=== PATIENT | male | born 1960 | race Caucasian/White ===

== ENCOUNTER 2016-05-29 09:06 | Inpatient (IN) | payer MEDICAID, OTHER ==
[~2016-05-29] VITALS: Ht 170.2 cm; Wt 86.1 kg
[2016-05-29] MEDS ORDERED: SOD CHLORIDE 0.9% 1,000 ML IV STA (09:48)
[2016-05-29] MEDS ORDERED: IBUPROFEN 600 MG TAB PO ONE (10:00)
--- NOTE | 2016-05-29 10:36 | RADRPT ---
PROCEDURE: CT Brain without. CLINICAL INDICATION: Hallucinations. TECHNIQUE: A CT of the brain was performed on multidetector high-resolution CT scanner utilizing a xial sections from the skull base through the vertex without contrast. The scan was reviewed in sof t tissue brain and high frequency resolution bone algorithm windows. Images were reviewed on a high -resolution PACS workstation. The exam CTDI = 42.80 mGy and the DLP = 720.23 mGy-cm. COMPARISON: None available. FINDINGS: The ventricles and sulci are mildly prominent indicative of volume loss. There is no intracranial h emorrhage, mass effect or midline shift. There is 4 mm nonspecific calcification in the medial left occipital lobe which may represent sequela of prior infection or inflammation. No abnormal intra-a xial or extra-axial fluid collections are seen. The william/white matter differentiation is preserved. There are mild scattered foci of hypoattenuation in the white matter, which are nonspecific in etiol ogy but likely reflect chronic small vessel ischemic changes. There are mild intracranial vascular calcifications consistent with atherosclerosis. The visualized paranasal sinuses demonstrate mild sc attered mucosal thickening. The mastoid air cells are essentially clear. IMPRESSION: 1. No acute intracranial hemorrhage, transcortical infarction or mass effect. 2. Mild intracranial atherosclerosis and chronic small vessel ischemic changes. 3. A 4 mm nonspecific calcification in the medial left occipital lobe which may represent sequela of prior infection or inflammation. 4. Mild generalized cerebral volume loss. RPTAT: UU .Dior Ferreira MD, MD Date Time Electronically viewed and signed by .Dior Ferreira MD, MD on 05/29/2016 10:36 .N/
[2016-05-29 10:59] LABS: BASOPHILS % 0.2 % (0.0-2.0); EOSINOPHILS # 0.1 10^3/ul (0.0-0.5); EOSINOPHILS % 0.8 % (0.0-7.0); HEMATOCRIT 42.8 % (42.0-52.0); HEMOGLOBIN 15.1 g/dl (14.0-18.0); LYMPHOCYTES # 0.6 10^3/ul (0.8-2.9); MEAN CORPUSCULAR HEMOGLOBIN 33.8 pg (29.0-33.0); MEAN CORPUSCULAR HGB CONC 35.2 g/dl (32.0-37.0); MEAN PLATELET VOLUME 8.8 fl (7.4-10.4); MONOCYTE # 0.4 10^3/ul (0.3-0.9); MONOCYTES % 5.2 % (0.0-11.0); NEUTROPHILS % 85.8 % (39.0-77.0); PLATELET COUNT 161 10^3/UL (140-440); RED BLOOD COUNT 4.46 10^6/ul (4.70-6.10); RED CELL DISTRIBUTION WIDTH 12.9 % (11.5-14.5)
[2016-05-29 11:00] LABS: CONDITION 1
[2016-05-29 11:07] LABS: ADD UMIC NO; URINE BILIRUBIN (Dip) NEGATIVE (NEGATIVE); URINE BLOOD (Dip) NEGATIVE (NEGATIVE); URINE COLOR LT. YELLOW (YELLOW); URINE GLUCOSE (Dip) NEGATIVE (NEGATIVE); URINE KETONES (Dip) NEGATIVE (NEGATIVE); URINE LEUKOCYTE ESTERASE (Dip) NEGATIVE (NEGATIVE); URINE NITRITE (Dip) NEGATIVE (NEGATIVE); URINE TOTAL PROTEIN (Dip) NEGATIVE (NEGATIVE); URINE UROBILINOGEN (Dip) 0.2 E.U./dL (0.1-1.0)
[2016-05-29 11:10] LABS: CHLORIDE 103 mmol/L (97-110)
[2016-05-29 11:11] LABS: ALBUMIN 4.4 g/dl (3.3-4.9); POTASSIUM 3.9 mmol/L (3.5-5.1); SODIUM 143 mmol/L (135-144)
[2016-05-29 11:14] LABS: ALANINE AMINOTRANSFERASE 72 IU/L (13-69); ALBUMIN/GLOBULIN RATIO 1.22; ALKALINE PHOSPHATASE 77 IU/L (42-121); ANION GAP 16 (8-16); ASPARTATE AMINO TRANSFERASE 118 IU/L (15-46); BILIRUBIN,INDIRECT 0.4 mg/dl (0-1.1); BILIRUBIN,TOTAL 0.4 mg/dl (0.2-1.3); BLOOD UREA NITROGEN 11 mg/dl (7-20); CALCIUM 9.3 mg/dl (8.4-10.2); CARBON DIOXIDE 28 mmol/L (21-31); CREATININE 0.88 mg/dl (0.61-1.24); GLUCOSE 128 mg/dl (70-220)
[2016-05-29 11:15] LABS: ETHANOL < 10.0 mg/dl; SALICYLATE 4.4 mg/dl (5.0-30.0)
[2016-05-29 11:16] LABS: ACETAMINOPHEN < 10.0 ug/ml (10.0-30.0)
[2016-05-29] MEDS ORDERED: SODIUM CHLORIDE 0.9% 1L BAG IV* STA (11:18)
[2016-05-29] MEDS ORDERED: CEFTRIAXONE 1 GM/50 ML (PMX) 50 ML IVPB STA (11:18)
[2016-05-29] MEDS ORDERED: DICLOFENAC SODIUM 37.5 MG/ML VIAL IV STA (13:58)
[2016-05-29 14:34] LABS: BARBITURATES NEGATIVE (NEGATIVE); BENZODIAZEPINES NEGATIVE (NEGATIVE); CANNABINOIDS NEGATIVE (NEGATIVE); COCAINE NEGATIVE (NEGATIVE); OPIATES NEGATIVE (NEGATIVE)
[2016-05-29] MEDS ORDERED: NAPR-688 PO (14:40)
--- NOTE | 2016-05-29 16:28 | ERD ---
ER Documentation Chief Complaint Date/Time DATE: 05/29/16 TIME: 16:24 Chief Complaint sore throat, hernandez, +visual/auditory hallucinations x"month" per family. HPI This 55-year-old male was brought in the emergency room by and daughter for feeling sick for 6 days. He's had a sore throat mild headache and body aches. Cranial family's having auditory and visual hallucinations for a month. He denies suicidal homicidal ideations the family is worried. She denies fevers but does have a low-grade fever in triage. No chest pain or shortness of breath.. ROS All systems reviewed and are negative except as per history of present illness. Medications Home Meds Active Scripts Naproxen* (Naproxen*) 500 Mg Tablet, 500 MG PO BID, #20 TAB Prov:ABRAHAM HAMILTON DO 05/29/16 Allergies Allergies: Coded Allergies: No Known Allergy (Unverified , 05/29/16) PMhx/Soc Medical and Surgical Hx: pt denies Medical Hx, pt denies Surgical Hx Hx Alcohol Use: Yes Hx Substance Use: No Hx Tobacco Use: No Smoking Status: Never smoker Physical Exam Vitals Vital Signs Date Time Temp Pulse Resp B/P Pulse Ox O2 Delivery O2 Flow Rate FiO2 05/29/16 14:01 86 18 168/100 97 Room Air 05/29/16 09:17 100.5 115 20 197/100 98 Physical Exam Const: [] No distress Head: Atraumatic Eyes: Normal Conjunctiva ENT: Normal External Ears, Nose and Mouth. Oropharynx within normal limits. Neck: Full range of motion..~ No meningismus. Resp: Clear to auscultation bilaterally Cardio: Regular rate and rhythm, no murmurs Abd: Soft, non tender, non distended. Normal bowel sounds Skin: No petechiae or rashes Back: No midline or flank tenderness Ext: No cyanosis, or edema Neur: Awake and alert oriented 3, cranial nerves II through XII intact, cerebellar finger to nose intact, normal gait Psych: Normal Mood and Affect Result Diagram: 05/29/16 1010 05/29/16 1010 Results 24 hrs Laboratory Tests Test 05/29/16 10:10 05/29/16 11:50 Acetaminophen Level < 10.0ug/ml Alanine Aminotransferase (ALT/SGPT) 72IU/L Albumin 4.4g/dl Albumin/Globulin Ratio 1.22 Alkaline Phosphatase 77IU/L Anion Gap 16 Aspartate Amino Transf (AST/SGOT) 118IU/L Basophils # 0.010^3/ul Basophils % 0.2% Blood Urea Nitrogen 11mg/dl Calcium Level 9.3mg/dl Carbon Dioxide Level 28mmol/L Chloride Level 103mmol/L Creatinine 0.88mg/dl Direct Bilirubin 0.00mg/dl Eosinophils # 0.110^3/ul Eosinophils % 0.8% Ethyl Alcohol Level < 10.0mg/dl Globulin 3.60g/dl Glucose Level 128mg/dl Hematocrit 42.8% Hemoglobin 15.1g/dl Indirect Bilirubin 0.4mg/dl Lymphocytes # 0.610^3/ul Lymphocytes % 8.0% Mean Corpuscular Hemoglobin 33.8pg Mean Corpuscular Hemoglobin Concent 35.2g/dl Mean Corpuscular Volume 96.0fl Mean Platelet Volume 8.8fl Monocytes # 0.410^3/ul Monocytes % 5.2% Neutrophils # 6.010^3/ul Neutrophils % 85.8% Nucleated Red Blood Cells # 0.010^3/ul Nucleated Red Blood Cells % 0.0/100WBC Platelet Count 52953^3/UL Potassium Level 3.9mmol/L Red Blood Count 4.4610^6/ul Red Cell Distribution Width 12.9% Salicylates Level 4.4mg/dl Sodium Level 143mmol/L Total Bilirubin 0.4mg/dl Total Protein 8.0g/dl Urine Amphetamines Screen NEGATIVE Urine Barbiturates NEGATIVE Urine Benzodiazepines Screen NEGATIVE Urine Bilirubin NEGATIVE Urine Cannabinoids NEGATIVE Urine Clarity CLEAR Urine Cocaine Screen NEGATIVE Urine Color LT. YELLOW Urine Glucose NEGATIVE% Urine Hemoglobin NEGATIVE Urine Ketones NEGATIVE Urine Leukocyte Esterase NEGATIVE Urine Nitrite NEGATIVE Urine Opiates Screen NEGATIVE Urine Specific [place] 1.015 Urine Total Protein NEGATIVE Urine Urobilinogen 0.2 E.U./dL Urine pH 6.0 White Blood Count 7.010^3/ul Lactic Acid Level 1.1mmol/L Current Medications Medications (Trade) Dose Ordered Sig/Cristobal Route PRN Reason Start Time Stop Time Status Last Admin Dose Admin Ibuprofen 600 mg 600 mg ONCE ONCE PO 05/29/16 10:00 05/29/16 10:01 DC 05/29/16 10:18 Sodium Chloride (NS) 1,000 ml @ 1,000 mls/hr Q1H STAT IV 05/29/16 09:48 05/29/16 10:47 DC 05/29/16 10:18 Sodium Chloride 2540 ml 2,540 ml BOLUS OVER 2 HOURS STAT IV* 05/29/16 11:18 05/29/16 11:22 DC 05/29/16 12:06 Ceftriaxone Sodium (Rocephin) 50 ml @ 100 mls/hr ONCE STAT IVPB 05/29/16 11:18 05/29/16 11:47 DC 05/29/16 12:06 Diclofenac Sodium (Dyloject) 37.5 mg ONCE STAT IV 05/29/16 13:58 05/29/16 13:59 DC 05/29/16 13:58 Procedures/MDM Patient with apparent viral syndrome also having unexplained hallucinations. This Nations of better on for much longer than his infectious symptoms. He has normal laboratories and have low suspicion for meningitis as he has a negative white count without meningismus. Kernig and Brudzinski sign are also negative. His normal neurological exam is alert and oriented and a good historian currently. Social work spoke with him and give him resources for psychiatric follow-up but does not recommend admission as the patient has no thoughts of harming himself or others. Was given Dilaudid checked a small dose of morphine emergency room which decreased his symptoms may feel better. He is awaiting tele -psych admission pending their decision he may be discharged which case I provided follow-up as well as return precautions to emergency room for any more concerning symptoms. Departure Diagnosis: Primary Impression: Hallucinations Additional Impression: Viral syndrome Condition: Stable Patient Instructions: Psychosis, Viral Syndrome (Adult) Referrals: [facility] YOU HAVE RECEIVED A MEDICAL SCREENING EXAM AND THE RESULTS INDICATE THAT YOU DO NOT HAVE A CONDITION THAT REQUIRES URGENT TREATMENT IN THE EMERGENCY DEPARTMENT. FURTHER EVALUATION AND TREATMENT OF YOUR CONDITION CAN WAIT UNTIL YOU ARE SEEN IN YOUR DOCTORS OFFICE WITHIN THE NEXT 1-2 DAYS. IT IS YOUR RESPONSIBILITY TO MAKE AN APPOINTMENT FOR FOLOW-UP CARE. IF YOU HAVE A PRIMARY DOCTOR --you should call your primary doctor and schedule an appointment IF YOU DO NOT HAVE A PRIMARY DOCTOR YOU CAN CALL OUR PHYSICIAN REFERRAL HOTLINE AT IF YOU CAN NOT AFFORD TO SEE A PHYSICIAN YOU CAN CHOSE FROM THE FOLLOWING [facility] [address] [facility] [address] [facility] [address] [facility] [address] [facility] [address] [facility]. [facility] [address] [facility]. [facility] YOU HAVE RECEIVED A MEDICAL SCREENING EXAM AND THE RESULTS INDICATE THAT YOU DO NOT HAVE A CONDITION THAT REQUIRES URGENT TREATMENT IN THE EMERGENCY DEPARTMENT. FURTHER EVALUATION AND TREATMENT OF YOUR CONDITION CAN WAIT UNTIL YOU ARE SEEN IN YOUR DOCTORS OFFICE WITHIN THE NEXT 1-2 DAYS. IT IS YOUR RESPONSIBILITY TO MAKE AN APPOINTMENT FOR FOLOW-UP CARE. IF YOU HAVE A PRIMARY DOCTOR --you should call your primary doctor and schedule and appointment IF YOU DO NOT HAVE A PRIMARY DOCTOR YOU CAN CALL OUR PHYSICIAN REFERRAL HOTLINE AT . IF YOU CAN NOT AFFORD TO SEE A PHYSICIAN YOU CAN CHOSE FROM THE FOLLOWING [facility] INSTITUTIONS: [facility] [address] [place] [address] [facility] [address] [place] [address] [facility] [address] [place] [address] Additional Instructions: Llame al doctor MAANA y latisha cassi KEITH PARA DENTRO DE 1-2 FINE.Dgale a la secretaria que nosotros le instruimos hacer esta keith.Avise o llame si larsen condicin se empeora antes de la keith. Regresa aqui si peor o no mejor. ABRAHAM HAMILTON DO May 29, 2016 16:28
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
[2016-05-29] MEDS: OLANZAPINE 5 MG TAB PO SCH (21:56)
[2016-05-29] MEDS ORDERED: ACETAMINOPHEN 325 MG TAB PO ONE (22:30)
[2016-05-30] MEDS ORDERED: ACETAMINOPHEN 325 MG TAB PO ONE (13:00)
--- NOTE | 2016-05-30 22:23 | RADRPT ---
PROCEDURE: XR Chest. CLINICAL INDICATION: Cough and fever. TECHNIQUE: Single frontal view. COMPARISON: None. FINDINGS: The lungs are clear. The heart size is normal. There is no pleural effusion. There is no pneumothorax. IMPRESSION: 1. Normal chest radiograph. RPTAT: QQ .Nj Del Toro MD, Date Time Electronically viewed and signed by .Nj Del Toro MD, on 05/30/2016 22:22 .R/
[2016-05-30] MEDS: OLANZAPINE 5 MG TAB PO SCH (22:28)
[2016-05-30] MEDS ORDERED: IBUPROFEN 800 MG TAB PO ONE (22:30)
[2016-05-30] MEDS ORDERED: ONDANSETRON 4 MG INJ IV PRN (23:30)
[2016-05-30] MEDS ORDERED: ACETAMINOPHEN 325 MG TAB PO PRN (23:30)
[2016-05-31] MEDS ORDERED: ONDANSETRON 4 MG INJ IV PRN (02:00)
[2016-05-31] MEDS ORDERED: LEVOFLOXACIN 500MG/D5W (PMX) 100 ML IVPB SCH (02:00)
[2016-05-31 02:09] VITALS: TEMP 97.9
[2016-05-31 03:06] VITALS: Ht 170.2 cm; Wt 86.1 kg
[2016-05-31 03:19] VITALS: BP 114/78; PULSE 75; RESP 16
--- NOTE | 2016-05-31 03:29 | HP ---
DATE OF ADMISSION: 05/30/2016 PRESENTING COMPLAINT: The patient was brought to the emergency room by and daughter for flu-li ke symptoms over the last 6 days. However, he came in with complaints of a sore throat, mild headac he and body aches. However, he was found to be having auditory and visual hallucinations that ____ on for a month. The patient, however, denies suicidal, homicidal ideations, but the family was worr ied, and so a telepsychiatric consultation was done by the emergency room, and he was seen by Dr. Cristina montes. ____ history patient has not been sleeping for 6 weeks, not eating and was hearing voices telli ng him they were going kill him and telling him to hurt others. The patient was then assessed to [facility] inpatient psychiatric admission and started on oral Zyprexa. However, he continued to have pe rsistent high-grade fever in the emergency room, and so he is being admitted to take care of his med [facility] issues before transfer to inpatient psychiatric unit. PAST MEDICAL HISTORY: The patient has history of psychiatric disorder, name unknown but has run out of medications a long time ago. SURGICAL HISTORY: The patient denies. ALLERGIES: HE HAS NO KNOWN DRUG ALLERGIES. SOCIAL HISTORY: The patient's family endorses heavy alcohol use, but they say he does not smoke tob acco or use illicit drugs. FAMILY HISTORY: No history of premature coronary artery disease. REVIEW OF SYSTEMS: I did a 12-point review of systems. There is no chest pain. There are generali zed body aches though. There is no dysuria, hematuria. There is no blood in stool or urine. There is no extremity swelling. There is no joint swelling or deformity. All other systems were reviewe d and negative. PHYSICAL EXAMINATION VITAL SIGNS: At time of my review, his temperature was 101.9, pulse was 96, respirations 20, blood pressure 141/92, saturations 97% on room air. GENERAL: The patient was sleeping comfortably but alert and oriented. HEENT: Head normocephalic. Pupils equal, reactive. Mucous membranes dry. NECK: Nontender. CHEST: Clear to auscultation. CARDIOVASCULAR: Tachycardic without murmurs. ABDOMEN: Soft, nontender, nondistended. Normoactive bowel sounds. EXTREMITIES: No lower extremity edema. NEUROLOGIC: He had no focal deficits. SKIN: Devoid of rash or jaundice. LABORATORY: Emergency room lab values, but these are dated from 05/29/____, were consistent with a mild hyperchromia and a neutrophilia but normal white count, normal hemoglobin and hematocrit. A co mplete metabolic profile was completely normal except for elevation in his transaminases consistent with alcoholic liver disease with AST being almost twice ALT. Lactic acid was normal. The rest of his CMP was unremarkable. Urinalysis and urine tox screen were negative, and salicylate, acetaminop hen and alcohol levels were within normal range. IMAGING: Brain CT showed no acute intracranial hemorrhage, mild intracranial atherosclerosis, chron ic small-vessel ischemic changes and a 4 mm nonspecific calcification in the medial left occipital l obe that may be sequelae of prior infection or inflammation. Chest x-ray was read by Radiology as normal. ELECTROCARDIOGRAM: His electrocardiogram was not concerning for acute ischemia. ASSESSMENT: A 55-year-old male who is brought in by family for visual and auditory hallucinations a nd flu-like symptoms, managed as follows. 1. Febrile illness thought to be secondary to a viral respiratory infection. However, this is pers istent. Will have to admit him, begin empiric antibiotics and work him to up to rule out a bacteria l cause. In the interim, provide supportive care with antipyretics, antiemetics and a stool softene r if indicated. 2. Paranoid and delusions with visual and auditory hallucinations suggestive of schizophrenia. Rec ommended regimen is Zyprexa 10 mg per Psychiatry. Will continue this while in-house. 3. Acute transaminitis, likely secondary to alcoholic liver injury with a mild hyperchromasia. The patient has been counseled on the need to completely quit alcohol use to prevent further liver marina ge. Will continue to intervene while in-house. In the interim, will put him on banana bag and clos berenice watch for delirium tremens. 4. Disposition is for inpatient admission until more stable. Goal will be at least 24 hours fever free, after which he might be able to be transferred to inpatient psychiatric care. 5. Prophylaxis will be with Pepcid and SCDs. Dictated By: XIOMY SIDHU MD, BA/MARLA Conf#: [id number] DID#: [id number]
[2016-05-31 05:42] LABS: INR 1.15; PROTIME 14.7 Sec (12.2-14.2); PT RATIO 1.1
[2016-05-31 05:51] LABS: CHLORIDE 105 mmol/L (97-110); SODIUM 143 mmol/L (135-144)
[2016-05-31 05:53] LABS: ANION GAP 20 (8-16); ASPARTATE AMINO TRANSFERASE 135 IU/L (15-46); BILIRUBIN,INDIRECT 0.2 mg/dl (0-1.1); BILIRUBIN,TOTAL 0.2 mg/dl (0.2-1.3); CARBON DIOXIDE 22 mmol/L (21-31); CREATININE 1.03 mg/dl (0.61-1.24)
[2016-05-31 05:54] LABS: ALANINE AMINOTRANSFERASE 82 IU/L (13-69); ALKALINE PHOSPHATASE 63 IU/L (42-121); BLOOD UREA NITROGEN 14 mg/dl (7-20); CALCIUM 8.8 mg/dl (8.4-10.2); GLUCOSE 132 mg/dl (70-220); TOTAL PROTEIN 7.6 g/dl (6.1-8.1)
[2016-05-31 06:36] LABS: BASOPHILS % 0.9 % (0.0-2.0); EOSINOPHILS # 0.1 10^3/ul (0.0-0.5); EOSINOPHILS % 3.5 % (0.0-7.0); HEMOGLOBIN 15.2 g/dl (14.0-18.0); LYMPHOCYTES # 1.1 10^3/ul (0.8-2.9); LYMPHOCYTES % 30.7 % (15.0-51.0); MEAN CORPUSCULAR HEMOGLOBIN 33.4 pg (29.0-33.0); MEAN CORPUSCULAR HGB CONC 34.6 g/dl (32.0-37.0); MEAN CORPUSCULAR VOLUME 96.3 fl (82.0-101.0); MEAN PLATELET VOLUME 8.6 fl (7.4-10.4); MONOCYTE # 0.4 10^3/ul (0.3-0.9); MONOCYTES % 11.6 % (0.0-11.0); NEUTROPHIL # 1.9 10^3/ul (1.6-7.5); NEUTROPHILS % 53.3 % (39.0-77.0); PLATELET COUNT 135 10^3/UL (140-440); RED BLOOD COUNT 4.56 10^6/ul (4.70-6.10); RED CELL DISTRIBUTION WIDTH 13.1 % (11.5-14.5); UNCORRECTED WBC 3.6 10^3/ul (4.8-10.8); WHITE BLOOD COUNT 3.6 10^3/ul (4.8-10.8)
[2016-05-31 06:56] LABS: CONDITION 1
[2016-05-31 08:00] VITALS: BP 119/83; PULSE 81; RESP 18
[2016-05-31] MEDS: FAMOTIDINE 20 MG TAB PO SCH ×2 (08:56→20:55)
[2016-05-31] MEDS: DOCUSATE SODIUM 100 MG CAP PO SCH ×2 (08:56→20:55)
[2016-05-31] MEDS: MULTIVITAMINS 10 ML, THIAMINE 100 MG, FOLIC ACID 1 MG, MAGNESIUM SULFATE 2 GM in SOD CH... IV SCH (09:47)
--- NOTE | 2016-05-31 11:31 | RADRPT ---
PROCEDURE: Right Upper Quadrant Ultrasound. CLINICAL INDICATION: transaminitis,NPO TECHNIQUE: Multiple real-time images were acquired of the patient's right upper quadrant abdomen a nd retroperitoneum utilizing a high resolution transducer. COMPARISON: None FINDINGS: The liver measures 17.2 cm, and demonstrates diffusely increased echogenicity. No focal lesions are identified. The main portal vein is patent with proper directional flow. There is no intrahepatic biliary ductal dilatation. The extrahepatic common bile duct measures 5 mm. The gallbladder is without stones, wall thickening, or pericholecystic fluid. The pancreas is not visualized. The right kidney measures 11.6 cm and demonstrates normal echotexture. There is no right renal calcu cole or hydronephrosis. IMPRESSION: Hepatomegaly with severe fatty infiltration of the liver. No cholelithiasis or acute cholecystitis. Normal CBD. RPTAT: EE Physician Ligia Date Time Electronically viewed and signed by Physician Ligia on 05/31/2016 11:30 RA/
--- NOTE | 2016-05-31 15:21 | PN ---
Date/Time of Note Date/Time of Note DATE: 05/31/16 TIME: 15:16 Assessment/Plan VTE Prophylaxis VTE Prophylaxis Intervention: LMWH Lines/Catheters IV [facility] Saline Lock Urinary Cath still in place: No Assessment/Plan Chief Complaint/Hosp Course A/P 1) Ac influenza/bronchitis; stable; cont tamiflu 2) Chr alcoholism; AA needed 3) Etoh liver dz 4) Thrombocytopenia ~ chr liver dz assoc? 5) Leukopenia ~ influenza related. 6) Nonadherence 7) Ac on Chr schizophrenia exacerbation; zyprexa/ cont 5151 hold. Problems: Subjective 24 Hr Interval Summary Free Text/Dictation S- cough-yellow expectoration; no hemoptysis/ ill contacts. +sore throat. no recent travel/ ill contacts. non smoker. ran out of [place], and has been having hallucinations. continues to be on hold. Exam/Review of Systems Vital Signs Vitals Vital Signs Date Time Temp Pulse Resp B/P Pulse Ox O2 Delivery O2 Flow Rate FiO2 05/31/16 08:00 97.1 81 18 119/83 98 Room Air Exam Constitutional: alert Respiratory: clear to auscultation Cardiovascular: regular rate and rhythm Gastrointestinal: non-tender (nd; no r r g), soft Extremities: other (no edema) Results Result Diagram: 05/31/1651205/31/16512 Results 24 hrs Laboratory Tests Test 05/31/16 05:13 Activated Partial Thromboplast Time 35.0 Alanine Aminotransferase (ALT/SGPT) 82 H Albumin 4.0 Alkaline Phosphatase 63 Anion Gap 20 H Aspartate Amino Transf (AST/SGOT) 135 H Basophils # 0.0 Basophils % 0.9 Blood Urea Nitrogen 14 Calcium Level 8.8 Carbon Dioxide Level 22 Chloride Level 105 Creatinine 1.03 Direct Bilirubin 0.00 Eosinophils # 0.1 Eosinophils % 3.5 Glucose Level 132 Hematocrit 44.0 Hemoglobin 15.2 Hepatitis B Surface Antibody NEGATIVE Hepatitis B Surface Antigen NEGATIVE Hepatitis C Antibody NEGATIVE INR International Normalized Ratio 1.15 Indirect Bilirubin 0.2 Lymphocytes # 1.1 Lymphocytes % 30.7 Magnesium Level 2.0 Mean Corpuscular Hemoglobin 33.4 H Mean Corpuscular Hemoglobin Concent 34.6 Mean Corpuscular Volume 96.3 Mean Platelet Volume 8.6 Monocytes # 0.4 Monocytes % 11.6 H Neutrophils # 1.9 Neutrophils % 53.3 Nucleated Red Blood Cells # 0.0 Nucleated Red Blood Cells % 0.0 Platelet Count 135 L Potassium Level 4.0 Prothrombin Time 14.7 H Prothrombin Time Ratio 1.1 Red Blood Count 4.56 L Red Cell Distribution Width 13.1 Sodium Level 143 Thyroid Stimulating Hormone (TSH) 1.860 Total Bilirubin 0.2 Total Protein 7.6 White Blood Count 3.6 #L Medications Medications Current Medications Olanzapine (Zyprexa) 10 mg QHS PO Last administered on 05/30/16at 22:28; Admin Dose 10 MG; Start 05/29/16 at 21:00 Acetaminophen 650 mg 650 mg Q6H PRN PO PAIN AND OR ELEVATED TEMP; Start at 02:00 Multivitamins/ Thiamine HCl/ Folic Acid/ Magnesium Sulfate/ Sodium Chloride (Mvi -12 Adult/ Vitamin B1/Folic Acid/Magnesium Sulfate/NS) 1,015.2 ml @ 125 mls/ hr DAILY@09 IV Last administered on 05/31/16 09:47; Admin Dose 125 MLS/HR; Start 05/31/16 at 09:00 Ondansetron HCl (Zofran Inj) 4 mg Q6H PRN IV NAUSEA AND/OR VOMITING; Start at 02:00 Famotidine (Pepcid) 20 mg BID PO Last administered on 05/31/16at 08:56; Admin Dose 20 MG; Start 05/31/16 at 09:00 Docusate Sodium 100 mg 100 mg BID PO Last administered on 05/31/16 08:56; Admin Dose 100 MG; Start 05/31/16 at 09:00 Levofloxacin/ Dextrose (Levaquin 500mg/ D5W 100 ml (Pmx)) 100 ml @ 100 mls/hr Q24H IVPB Last administered on 05/31/16 04:00; Admin Dose 100 MLS/HR; Start 05/31/16 at 02:00 ARABELLA MEHTA MD May 31, 2016 15:21
[2016-05-31] MEDS ORDERED: GUAIFENESIN/CODEINE 5ML CUP PO PRN (15:30)
[2016-05-31] MEDS ORDERED: ALBUTEROL HFA 8 GM INHALER INH PRN (15:30)
[2016-05-31] MEDS ORDERED: PHENOL 1.4% SOLN 180 ML BTL MT PRN (16:00)
[2016-05-31] MEDS: THIAMINE 100 MG TAB PO SCH (16:27)
[2016-05-31] MEDS: OSELTAMIVIR 75 MG CAP PO SCH ×2 (16:27→20:55)
[2016-05-31] MEDS: AZITHROMYCIN 250 MG TAB PO SCH (16:27)
[2016-05-31] MEDS: ENOXAPARIN 40 MG/0.4 ML SYG SC SCH (16:29)
[2016-05-31] MEDS: SOD CHLORIDE 0.9% 1,000 ML IV SCH ×2 (17:56→23:30)
[2016-05-31 19:57] VITALS: BP 155/96; PULSE 91; RESP 18
[2016-05-31] MEDS: OLANZAPINE 5 MG TAB PO SCH (20:55)
[2016-06-01] MEDS: SOD CHLORIDE 0.9% 1,000 ML IV SCH ×4 (02:07→19:23)
[2016-06-01 06:37] LABS: INR 1.04; PROTIME 13.6 Sec (12.2-14.2); PT RATIO 1.1
[2016-06-01 06:49] LABS: BASOPHILS % 0.8 % (0.0-2.0); EOSINOPHILS # 0.1 10^3/ul (0.0-0.5); EOSINOPHILS % 3.3 % (0.0-7.0); HEMATOCRIT 42.6 % (42.0-52.0); HEMOGLOBIN 14.9 g/dl (14.0-18.0); LYMPHOCYTES # 1.9 10^3/ul (0.8-2.9); LYMPHOCYTES % 49.9 % (15.0-51.0); MEAN CORPUSCULAR HEMOGLOBIN 33.8 pg (29.0-33.0); MEAN CORPUSCULAR VOLUME 96.7 fl (82.0-101.0); MEAN PLATELET VOLUME 8.2 fl (7.4-10.4); MONOCYTE # 0.4 10^3/ul (0.3-0.9); MONOCYTES % 10.8 % (0.0-11.0); NEUTROPHIL # 1.3 10^3/ul (1.6-7.5); NEUTROPHILS % 35.2 % (39.0-77.0); PLATELET COUNT 146 10^3/UL (140-440); RED CELL DISTRIBUTION WIDTH 12.9 % (11.5-14.5); UNCORRECTED WBC 3.7 10^3/ul (4.8-10.8); WHITE BLOOD COUNT 3.7 10^3/ul (4.8-10.8)
[2016-06-01 06:56] LABS: POTASSIUM 4.2 mmol/L (3.5-5.1)
[2016-06-01 06:59] LABS: CREATININE 0.96 mg/dl (0.61-1.24)
[2016-06-01 07:00] LABS: CALCIUM 8.7 mg/dl (8.4-10.2)
[2016-06-01 07:02] LABS: CONDITION 1
[2016-06-01 07:09] LABS: PHOSPHORUS 3.6 mg/dl (2.5-4.9)
[2016-06-01 07:10] LABS: MAGNESIUM 1.9 mg/dl (1.7-2.5)
[2016-06-01 08:00] VITALS: BP 158/98; PULSE 75; RESP 20
[2016-06-01] MEDS: FAMOTIDINE 20 MG TAB PO SCH ×2 (08:57→20:46)
[2016-06-01] MEDS: THIAMINE 100 MG TAB PO SCH (08:57)
[2016-06-01] MEDS: OSELTAMIVIR 75 MG CAP PO SCH ×2 (08:57→20:46)
[2016-06-01] MEDS: AZITHROMYCIN 250 MG TAB PO SCH (08:57)
[2016-06-01] MEDS: MULTIVITAMINS 10 ML, THIAMINE 100 MG, FOLIC ACID 1 MG, MAGNESIUM SULFATE 2 GM in SOD CH... IV SCH (08:57)
[2016-06-01] MEDS: DOCUSATE SODIUM 100 MG CAP PO SCH ×2 (08:57→20:45)
[2016-06-01 09:47] LABS: THYROID STIMULATING HORMONE 4.06 MIU/L (0.465-4.680)
[2016-06-01] MEDS: ENOXAPARIN 40 MG/0.4 ML SYG SC SCH (10:31)
--- NOTE | 2016-06-01 14:15 | PN ---
Date/Time of Note Date/Time of Note DATE: 06/01/16 TIME: 14:13 Assessment/Plan VTE Prophylaxis VTE Prophylaxis Intervention: ambulation Lines/Catheters IV Catheter Type (from Nrs): Peripheral IV Urinary Cath still in place: No Assessment/Plan Chief Complaint/Hosp Course A/P 1) Ac influenza/bronchitis; stable; cont tamiflu. if no fever 06/02, will dc to psychiatry care, if able to get po meds. 2) Chr alcoholism; AA needed/ b1 3) Etoh liver dz 4) Thrombocytopenia ~ chr liver dz assoc? 5) Leukopenia ~ influenza related. 6) Nonadherence 7) Back pain; muscular spasm likely. 8) Ac on Chr schizophrenia exacerbation; zyprexa/ cont 5151 hold. Problems: Subjective 24 Hr Interval Summary Free Text/Dictation S- less cough/dyspnea; some sore throat remains. lt flank/back non radiating pain. no dysuria/ hematuria. Exam/Review of Systems Vital Signs Vitals Vital Signs Date Time Temp Pulse Resp B/P Pulse Ox O2 Delivery O2 Flow Rate FiO2 06/01/16 08:00 98.8 75 20 158/98 97 Room Air Intake and Output 05/31/16 05/31/16 06/01/16 14:59 22:59 06:59 Intake Total 1015.2 ml 1480 ml Balance 1015.2 ml 1480 ml Exam Respiratory: diminished breath sounds Cardiovascular: regular rate and rhythm Gastrointestinal: non-tender, soft Extremities: other (no edema) Results Result Diagram: 06/01/16 0530 06/01/16 0520 Results 24 hrs Laboratory Tests Test 06/01/16 04:29 06/01/16 05:20 06/01/16 05:30 Hemoglobin A1c 6.6 H Anion Gap 19 H Blood Urea Nitrogen 11 Calcium Level 8.7 Carbon Dioxide Level 21 Chloride Level 109 Creatinine 0.96 Glucose Level 108 Potassium Level 4.2 Sodium Level 145 H Basophils # 0.0 Basophils % 0.8 Eosinophils # 0.1 Eosinophils % 3.3 Hematocrit 42.6 Hemoglobin 14.9 INR International Normalized Ratio 1.04 Lymphocytes # 1.9 Lymphocytes % 49.9 Magnesium Level 1.9 Mean Corpuscular Hemoglobin 33.8 H Mean Corpuscular Hemoglobin Concent 35.0 Mean Corpuscular Volume 96.7 Mean Platelet Volume 8.2 Monocytes # 0.4 Monocytes % 10.8 Neutrophils # 1.3 L Neutrophils % 35.2 L Nucleated Red Blood Cells # 0.0 Nucleated Red Blood Cells % 0.0 Phosphorus Level 3.6 Platelet Count 146 Prothrombin Time 13.6 Prothrombin Time Ratio 1.1 Red Blood Count 4.40 L Red Cell Distribution Width 12.9 Thyroid Stimulating Hormone (TSH) 4.060 White Blood Count 3.7 L Medications Medications Current Medications Olanzapine (Zyprexa) 10 mg QHS PO Last administered on 05/31/16at 20:55; Admin Dose 10 MG; Start 05/29/16 at 21:00 Acetaminophen 650 mg 650 mg Q6H PRN PO PAIN AND OR ELEVATED TEMP; Start at 02:00 Multivitamins/ Thiamine HCl/ Folic Acid/ Magnesium Sulfate/ Sodium Chloride (Mvi -12 Adult/ Vitamin B1/Folic Acid/Magnesium Sulfate/NS) 1,015.2 ml @ 125 mls/ hr DAILY@09 IV Last administered on 06/01/16 08:57; Admin Dose 125 MLS/HR; Start 05/31/16 at 09:00 Ondansetron HCl (Zofran Inj) 4 mg Q6H PRN IV NAUSEA AND/OR VOMITING; Start at 02:00 Famotidine (Pepcid) 20 mg BID PO Last administered on 06/01/16 08:57; Admin Dose 20 MG; Start 05/31/16 at 09:00 Docusate Sodium (Colace) 100 mg BID PO Last administered on 06/01/16 08:57; Admin Dose 100 MG; Start 05/31/16 at 09:00 Azithromycin (Zithromax) 250 mg DAILY PO Last administered on 06/01/16 08:57 ; Admin Dose 250 MG; Start 05/31/16 at 16:00 Oseltamivir Phosphate (Tamiflu) 75 mg BID PO Last administered on 06/01/16 08 :57; Admin Dose 75 MG; Start 05/31/16 at 16:00 Enoxaparin Sodium (Lovenox) 40 mg DAILY SC Last administered on 06/01/16 10: 31; Admin Dose 40 MG; Start 05/31/16 at 16:00 Thiamine HCl 100 mg 100 mg DAILY PO Last administered on 06/01/16 08:57; Admin Dose 100 MG; Start 05/31/16 at 16:00 Sodium Chloride (NS) 1,000 ml @ 125 mls/hr Q8H IV Last administered on at 02:07; Admin Dose 125 MLS/HR; Start 05/31/16 at 15:30 Phenol (Chloraseptic Throat [place]) 2 spray Q2H PRN MT SORE THROAT; Start 05/31 at 16:00 Guaifenesin/ Codeine Phosphate (Robitussin Ac Liquid Cup) 10 ml Q4H PRN PO COUGH; Start 05/31/16 at 15:30 ARABELLA MEHTA MD Jun 01, 2016 14:15
--- NOTE | 2016-06-01 15:20 | RADRPT ---
PROCEDURE: XR Lumbar Spine. CLINICAL INDICATION: Flank and back pain. TECHNIQUE: 3 views of the lumbar spine are available for review COMPARISON: None available FINDINGS: The 5 lumbar vertebral bodies appear normally aligned and the vertebral body heights are maintained. There are osteophytes along the endplates. There is degenerative disk disease at L5-S1. There is mild facet arthropathy present. An acute fracture or subluxation is not identified. The paravertebr al soft tissues appear unremarkable. IMPRESSION: 1. Diffuse lumbar vertebral spondylosis. 2. No acute fracture or subluxation identified. RPTAT: [facility] Physician Otoniel Date Time Electronically viewed and signed by Reuben Moreno Physician on 06/01/2016 15:19 /
[2016-06-01 20:43] VITALS: BP 143/95; PULSE 84; RESP 18
[2016-06-01] MEDS: OLANZAPINE 5 MG TAB PO SCH (20:46)
[2016-06-02 06:22] LABS: BASOPHILS % 0.5 % (0.0-2.0); EOSINOPHILS # 0.2 10^3/ul (0.0-0.5); EOSINOPHILS % 3.9 % (0.0-7.0); HEMATOCRIT 41.1 % (42.0-52.0); HEMOGLOBIN 14.2 g/dl (14.0-18.0); LYMPHOCYTES # 1.7 10^3/ul (0.8-2.9); LYMPHOCYTES % 37.5 % (15.0-51.0); MEAN CORPUSCULAR HEMOGLOBIN 33.4 pg (29.0-33.0); MEAN CORPUSCULAR HGB CONC 34.6 g/dl (32.0-37.0); MEAN CORPUSCULAR VOLUME 96.7 fl (82.0-101.0); MONOCYTE # 0.5 10^3/ul (0.3-0.9); MONOCYTES % 10.8 % (0.0-11.0); NEUTROPHIL # 2.2 10^3/ul (1.6-7.5); NEUTROPHILS % 47.3 % (39.0-77.0); PLATELET COUNT 151 10^3/UL (140-440); RED BLOOD COUNT 4.25 10^6/ul (4.70-6.10); RED CELL DISTRIBUTION WIDTH 13.2 % (11.5-14.5); UNCORRECTED WBC 4.6 10^3/ul (4.8-10.8); WHITE BLOOD COUNT 4.6 10^3/ul (4.8-10.8)
[2016-06-02 06:24] LABS: CONDITION 1
[2016-06-02 06:39] LABS: POTASSIUM 4.7 mmol/L (3.5-5.1)
[2016-06-02 06:42] LABS: CREATININE 0.94 mg/dl (0.61-1.24)
[2016-06-02 06:43] LABS: CALCIUM 8.7 mg/dl (8.4-10.2)
[2016-06-02 08:00] VITALS: BP 161/97; PULSE 77; RESP 16
[2016-06-02] MEDS: FAMOTIDINE 20 MG TAB PO SCH ×2 (09:18→20:13)
[2016-06-02] MEDS: OSELTAMIVIR 75 MG CAP PO SCH ×2 (09:18→20:13)
[2016-06-02] MEDS: THIAMINE 100 MG TAB PO SCH (09:18)
--- NOTE | 2016-06-02 09:18 | RADRPT ---
PROCEDURE: CR, chest CLINICAL INDICATION: Cough. TECHNIQUE: AP chest. COMPARISON: Chest, 05/30/2016. FINDINGS: The heart is not enlarged. There is no acute infiltrate in the lungs. No pleural effusion. There is degenerate spondylosis of the thoracic spine. IMPRESSION: 1. Unremarkable chest x-ray. RPTAT: GG .Jerson Carvajal MD, MD Date Time Electronically viewed and signed by .Jerson Carvajal MD, MD on 06/02/2016 09:18 .Y/
[2016-06-02] MEDS: DOCUSATE SODIUM 100 MG CAP PO SCH ×2 (09:19→20:13)
[2016-06-02] MEDS: AZITHROMYCIN 250 MG TAB PO SCH (09:19)
[2016-06-02] MEDS: ENOXAPARIN 40 MG/0.4 ML SYG SC SCH (09:24)
--- NOTE | 2016-06-02 12:42 | PDOCDIS ---
Discharge Instructions DIAGNOSIS Discharge Diagnosis: Influenza; schizophrenia CONDITION Patient Condition: Good HOME CARE INSTRUCTIONS: Diet Instructions: Regular ACTIVITY: Activity Restrictions: No Restrictions Do not Drive FOLLOW UP/APPOINTMENTS Appointments Admit to Inpatient Psy. PCP- 1wk post discharge. ARABELLA MEHTA MD Jun 02, 2016 12:42
[2016-06-02] MEDS ORDERED: OSLT75C PO (12:45)
[2016-06-02] MEDS ORDERED: UDROBAC PO (12:45)
[2016-06-02] MEDS ORDERED: OLAN5TAB5 PO (12:45)
[2016-06-02] MEDS ORDERED: ACET325T33 PO (12:45)
[2016-06-02] MEDS ORDERED: AZIT250T4 PO (12:45)
[2016-06-02] MEDS ORDERED: THIA100T56 PO (12:45)
[2016-06-02] MEDS: ACETAMINOPHEN 325 MG TAB PO PRN (17:52)
[2016-06-02 20:00] VITALS: BP 163/103; RESP 16
[2016-06-02 20:10] VITALS: BP 163/90; PULSE 90; RESP 20
[2016-06-02] MEDS: OLANZAPINE 5 MG TAB PO SCH (20:13)
--- NOTE | 2016-06-03 04:35 | DS ---
DATE OF ADMISSION: 05/30/2016 DATE OF DISCHARGE: 06/02/2016 PRIMARY CARE PHYSICIAN: Unknown. TREE WRAPPER: Behavioral health social service. DIAGNOSIS ON ADMISSION: Influenza. DIAGNOSES ON DISCHARGE: 1. Influenza. 2. Schizophrenia with suicidal/homicidal ideations. 3. Chronic alcoholism. 4. Chronic alcoholic liver disease. 5. Thrombocytopenia. 6. Leukopenia. 7. Nonadherence 8. Back pain/spondylosis. 9. Prediabetes with A1c 6.6. HOSPITAL COURSE: A 55-year-old gentleman who actually came in from home after probably schizophreni a exacerbation. He had ideation and hallucinations. He is on a 51:51 hold. The patient was kept under medical care due to influenza. He has no further fevers. He is tolerati ng a diet. He is stable and fit for discharge. He will finish his Tamiflu over the next 2 days. F rom the medical standpoint, he is clear for discharge to behavioral health. DISCHARGE PLAN: The patient will be discharged to inpatient behavioral health. Appointment primary 1 week post-discharge DIET: Regular. ACTIVITY: No driving. DURABLE MEDICAL EQUIPMENT: None. CODE STATUS: FULL. BARRIERS TO DISCHARGE: None. PENDING TESTS: None. FUNCTIONAL STATUS: The patient awake, alert, aware of the care plan. ALLERGIES: NO KNOWN DRUG ALLERGIES. CONDITION: Good. REASON FOR ADMISSION: Influenza. MEDICATIONS: CONTINUED MEDICATIONS: Naproxen 500 twice daily. NEW MEDICATIONS: 1. Tylenol as needed. 2. Azithromycin 250 daily for 2 more days. 3. Tamiflu 75 mg twice daily for 2 more days. 4. Robitussin every 4 hours as needed. 5. Thiamine 100 daily. 6. Zyprexa or interchange depending on behavioral health assessment 10 mg at bedtime daily. IMAGING STUDIES: Chest x-ray: No acute process. Lumbosacral spine showing diffuse vertebral lumba r spondylosis, no fracture. Ultrasound of the liver shows hepatomegaly, severe fatty infiltration o f the liver. CAT scan of the brain: No acute process. There is 4 mm, nonspecific in the med ial left occipital lobe which may represent sequela of prior infection, inflammation. LABORATORY DATA: Influenza A positive. Blood cultures negative. Sodium 146, potassium 4, chloride 111, bicarbonate 24, BUN of 13, creatinine 0.9, TSH of 4. LFTs okay with an AST and ALT of 135 and 82, probably related to alcoholism. A1c of 6.6. Lactic acid 1.1. INR 1. Urine tox screen unrema rkable. Urinalysis unremarkable. Hepatitis antigens A, B, and C acute panel negative. White cell count of 4.6, H and H of 14 and 41, platelets of 151. Dictated By: ARABELLA RAMIREZ/MARLA Conf#: [id number] DID#: [id number]
[2016-06-03 07:34] VITALS: BP 161/96; RESP 18
[2016-06-03] MEDS: ACETAMINOPHEN 325 MG TAB PO PRN (07:56)
[2016-06-03] MEDS: OSELTAMIVIR 75 MG CAP PO SCH ×2 (08:00→20:32)
[2016-06-03] MEDS: FAMOTIDINE 20 MG TAB PO SCH (08:00)
[2016-06-03] MEDS: THIAMINE 100 MG TAB PO SCH (08:00)
[2016-06-03] MEDS: AZITHROMYCIN 250 MG TAB PO SCH (08:02)
[2016-06-03] MEDS: DOCUSATE SODIUM 100 MG CAP PO SCH ×2 (08:03→20:32)
[2016-06-03] MEDS: ENOXAPARIN 40 MG/0.4 ML SYG SC SCH (08:43)
[2016-06-03 10:31] VITALS: BP 174/89
[2016-06-03] MEDS: VALSARTAN 80 MG TAB PO SCH ×2 (11:30→12:54)
--- NOTE | 2016-06-03 14:22 | PN ---
Date/Time of Note Date/Time of Note DATE: 06/03/16 TIME: 14:21 Assessment/Plan VTE Prophylaxis VTE Prophylaxis Intervention: LMWH Lines/Catheters IV Catheter Type (from Nrs): Peripheral IV Urinary Cath still in place: No Assessment/Plan Chief Complaint/Hosp Course A/P 1) Ac influenza/bronchitis; stable; finish tamiflu. Dc to psychiatry care, if able to get po meds. 2) Chr alcoholism; AA needed/ b1 3) Etoh liver dz 4) Thrombocytopenia ~ chr liver dz assoc? 5) Leukopenia ~ influenza related. 6) Nonadherence 7) Back pain; muscular spasm likely. 8) Ac on Chr schizophrenia exacerbation; zyprexa/ cont 5151 hold. Problems: Subjective 24 Hr Interval Summary Free Text/Dictation S- no events; possible repeat TelePsy eval. Exam/Review of Systems Vital Signs Vitals Vital Signs Date Time Temp Pulse Resp B/P Pulse Ox O2 Delivery O2 Flow Rate FiO2 06/03/16 10:31 79 174/89 06/03/16 07:34 98.0 18 99 06/02/16 20:10 Room Air Intake and Output 06/02/16 06/02/16 06/03/16 15:00 23:00 07:00 Intake Total 1680 ml 400 ml Balance 1680 ml 400 ml Exam Constitutional: alert Respiratory: clear to auscultation Cardiovascular: regular rate and rhythm Gastrointestinal: non-tender (nd; no r r g), soft Results Result Diagram: 06/02/16 0517 06/02/16 0517 Medications Medications Current Medications Olanzapine (Zyprexa) 10 mg QHS PO Last administered on 06/02/16at 20:13; Admin Dose 10 MG; Start 05/29/16 at 21:00 Acetaminophen (Tylenol Tab) 650 mg Q6H PRN PO PAIN AND OR ELEVATED TEMP Last administered on 06/03/16 07:56; Admin Dose 650 MG; Start 05/31/16 at 02:00 Ondansetron HCl (Zofran Inj) 4 mg Q6H PRN IV NAUSEA AND/OR VOMITING; Start at 02:00 Famotidine (Pepcid) 20 mg BID PO Last administered on 06/03/16 08:00; Admin Dose 20 MG; Start 05/31/16 at 09:00 Docusate Sodium (Colace) 100 mg BID PO Last administered on 06/02/16at 20:13; Admin Dose 100 MG; Start 05/31/16 at 09:00 Azithromycin (Zithromax) 250 mg DAILY PO Last administered on 06/03/16 08:02; Admin Dose 250 MG; Start 05/31/16 at 16:00 Oseltamivir Phosphate (Tamiflu) 75 mg BID PO Last administered on 06/03/16 08: 00; Admin Dose 75 MG; Start 05/31/16 at 16:00 Enoxaparin Sodium (Lovenox) 40 mg DAILY SC Last administered on 06/03/16 08:43 ; Admin Dose 40 MG; Start 05/31/16 at 16:00 Thiamine HCl (Vitamin B1) 100 mg DAILY PO Last administered on 06/03/16 08:00; Admin Dose 100 MG; Start 05/31/16 at 16:00 Phenol (Chloraseptic Throat [place]) 2 spray Q2H PRN MT SORE THROAT; Start 05/31 at 16:00 Guaifenesin/ Codeine Phosphate (Robitussin Ac Liquid Cup) 10 ml Q4H PRN PO COUGH; Start 05/31/16 at 15:30 Valsartan (Diovan) 80 mg DAILY PO Last administered on 06/03/16 12:54; Admin Dose 80 MG; Start 06/03/16 at 11:30 Hydralazine HCl (Apresoline) 10 mg Q4H PRN IV ELEVATED BLOOD PRESSURE; Start at 11:30 ARABELLA MEHTA MD Jun 03, 2016 14:22
[2016-06-03] MEDS ORDERED: VALS80TA2 PO (14:24)
[2016-06-03 19:35] VITALS: BP 142/88; RESP 18
[2016-06-03] MEDS: OLANZAPINE 5 MG TAB PO SCH (20:32)
[2016-06-04] MEDS: PIPER-TAZO 3.375 GM IV (PMX) 100 ML IVPB SCH ×3 (05:10→21:37)
[2016-06-04 07:13] VITALS: BP 140/70; RESP 18
[2016-06-04] MEDS: THIAMINE 100 MG TAB PO SCH (08:17)
[2016-06-04] MEDS: OSELTAMIVIR 75 MG CAP PO SCH ×2 (08:18→20:06)
[2016-06-04] MEDS: VALSARTAN 80 MG TAB PO SCH (08:18)
[2016-06-04] MEDS: FAMOTIDINE 20 MG TAB PO SCH (08:19)
[2016-06-04] MEDS: DOCUSATE SODIUM 100 MG CAP PO SCH ×2 (08:20→20:06)
[2016-06-04] MEDS: ENOXAPARIN 40 MG/0.4 ML SYG SC SCH (08:20)
--- NOTE | 2016-06-04 15:01 | PN ---
Date/Time of Note Date/Time of Note DATE: 06/04/16 TIME: 15:00 Assessment/Plan VTE Prophylaxis VTE Prophylaxis Intervention: LMWH Lines/Catheters IV Catheter Type (from Nrs): Saline Lock Urinary Cath still in place: No Assessment/Plan Assessment/Plan ) Ac influenza/bronchitis; stable; finish tamiflu. Dc to psychiatry care, if able to get po meds. 2) Chr alcoholism; AA needed/ b1 3) Etoh liver dz 4) Thrombocytopenia ~ chr liver dz assoc? 5) Leukopenia ~ influenza related. 6) Nonadherence 7) Back pain; muscular spasm likely. 8) Ac on Chr schizophrenia exacerbation; zyprexa/ cont 5151 hold. DISP: pending placement at [facility] facility Subjective 24 Hr Interval Summary Free Text/Dictation no acute events. Denied SI or HI Exam/Review of Systems Vital Signs Vitals Vital Signs Date Time Temp Pulse Resp B/P Pulse Ox O2 Delivery O2 Flow Rate FiO2 06/04/16 07:13 18 140/70 100 06/03/16 19:35 98.2 86 06/02/16 20:10 Room Air Intake and Output 06/03/16 06/03/16 06/04/16 15:00 23:00 07:00 Intake Total 2120 ml 560 ml Output Total 0 ml Balance 2120 ml 560 ml Exam Constitutional: alert, oriented Head: atraumatic, normocephalic Neck: non-tender, supple Cardiovascular: nl pulses, regular rate and rhythm Gastrointestinal: non-tender, soft Extremities: normal pulses Results Result Diagram: 06/02/1651606/02/1617 Medications Medications Current Medications Olanzapine (Zyprexa) 10 mg QHS PO Last administered on 06/03/16 20:32; Admin Dose 10 MG; Start 05/29/16 at 21:00 Acetaminophen (Tylenol Tab) 650 mg Q6H PRN PO PAIN AND OR ELEVATED TEMP Last administered on 06/03/16 07:56; Admin Dose 650 MG; Start 05/31/16 at 02:00 Ondansetron HCl (Zofran Inj) 4 mg Q6H PRN IV NAUSEA AND/OR VOMITING; Start at 02:00 Docusate Sodium (Colace) 100 mg BID PO Last administered on 06/03/16 20:32; Admin Dose 100 MG; Start 05/31/16 at 09:00 Oseltamivir Phosphate (Tamiflu) 75 mg BID PO Last administered on 06/04/16 08: 18; Admin Dose 75 MG; Start 05/31/16 at 16:00; Stop 06/04/16 at 23:00 Enoxaparin Sodium (Lovenox) 40 mg DAILY SC Last administered on 06/04/16 08:20 ; Admin Dose 40 MG; Start 05/31/16 at 16:00 Thiamine HCl (Vitamin B1) 100 mg DAILY PO Last administered on 06/04/16 08:17; Admin Dose 100 MG; Start 05/31/16 at 16:00 Phenol (Chloraseptic Throat [place]) 2 spray Q2H PRN MT SORE THROAT; Start 05/31 at 16:00 Guaifenesin/ Codeine Phosphate (Robitussin Ac Liquid Cup) 10 ml Q4H PRN PO COUGH; Start 05/31/16 at 15:30 Valsartan (Diovan) 80 mg DAILY PO Last administered on 06/04/16 08:18; Admin Dose 80 MG; Start 06/03/16 at 11:30 Hydralazine HCl (Apresoline) 10 mg Q4H PRN IV ELEVATED BLOOD PRESSURE; Start at 11:30 Famotidine 20 mg 20 mg DAILY PO Last administered on 06/04/16 08:19; Admin Dose 20 MG; Start 06/04/16 at 09:00 Piperacillin Sod/ Tazobactam Sod (Zosyn 3.375gm/ 100 ml (Pmx)) 100 ml @ 200 mls /hr Q8 IVPB Last administered on 06/04/16 13:51; Admin Dose 200 MLS/HR; Start 06/04/16 at 06:00 CHANCE GOLDBERG MD Jun 04, 2016 15:01
[2016-06-04 19:14] VITALS: BP 168/91; RESP 19
[2016-06-04] MEDS: hydrALAzine 20 MG INJ IV PRN (19:26)
[2016-06-04] MEDS: OLANZAPINE 5 MG TAB PO SCH (20:06)
[2016-06-05 05:35] VITALS: BP 142/87; PULSE 85
[2016-06-05] MEDS: PIPER-TAZO 3.375 GM IV (PMX) 100 ML IVPB SCH ×3 (05:40→22:30)
[2016-06-05 07:31] VITALS: BP 141/88; RESP 18
[2016-06-05] MEDS: DOCUSATE SODIUM 100 MG CAP PO SCH ×2 (08:54→21:01)
[2016-06-05] MEDS: THIAMINE 100 MG TAB PO SCH (08:54)
[2016-06-05] MEDS: FAMOTIDINE 20 MG TAB PO SCH (08:55)
[2016-06-05] MEDS: VALSARTAN 80 MG TAB PO SCH (08:55)
[2016-06-05] MEDS: ENOXAPARIN 40 MG/0.4 ML SYG SC SCH (09:00)
[2016-06-05] MEDS: ACETAMINOPHEN 325 MG TAB PO PRN (11:10)
--- NOTE | 2016-06-05 15:47 | PN ---
Date/Time of Note Date/Time of Note DATE: 06/05/16 TIME: 15:45 Assessment/Plan VTE Prophylaxis VTE Prophylaxis Intervention: LMWH Lines/Catheters IV Catheter Type (from Nrs): Saline Lock Urinary Cath still in place: No Assessment/Plan Assessment/Plan 1. Influenza/bronchitis; stable; finish tamiflu. 2) Chr alcoholism; AA needed/ b1 3) Etoh liver dz 4) Thrombocytopenia ~ chr liver dz assoc? 5) Leukopenia ~ influenza related. 6) Nonadherence 7) Back pain; muscular spasm likely. 8) Ac on Chr schizophrenia exacerbation; zyprexa/ cont 5151 hold. Dc to psychiatry care or behavioral health facility 9. GPR Bacteremia: cont abx. f/u speciation and sensitivity Subjective 24 Hr Interval Summary Free Text/Dictation denied suicidal ideation and also denied visual or auditory hallucination Exam/Review of Systems Vital Signs Vitals Vital Signs Date Time Temp Pulse Resp B/P Pulse Ox O2 Delivery O2 Flow Rate FiO2 06/05/16 07:31 98.0 68 18 141/88 92 06/02/16 20:10 Room Air Intake and Output 06/04/16 06/04/16 06/05/16 15:00 23:00 07:00 Intake Total 1030 ml 780 ml Balance 1030 ml 780 ml Exam Constitutional: alert, oriented Head: atraumatic, normocephalic Eyes: EOMI, PERRL Neck: non-tender, supple Respiratory: clear to auscultation, normal air movement Cardiovascular: bruits, regular rate and rhythm Gastrointestinal: non-tender, soft Extremities: normal pulses Results Result Diagram: 06/02/1651606/02/16516 Medications Medications Current Medications Olanzapine (Zyprexa) 10 mg QHS PO Last administered on 06/04/16 20:06; Admin Dose 10 MG; Start 05/29/16 at 21:00 Acetaminophen (Tylenol Tab) 650 mg Q6H PRN PO PAIN AND OR ELEVATED TEMP Last administered on 06/05/16 11:10; Admin Dose 650 MG; Start 05/31/16 at 02:00 Ondansetron HCl (Zofran Inj) 4 mg Q6H PRN IV NAUSEA AND/OR VOMITING; Start at 02:00 Docusate Sodium (Colace) 100 mg BID PO Last administered on 06/05/16 08:54; Admin Dose 100 MG; Start 05/31/16 at 09:00 Enoxaparin Sodium (Lovenox) 40 mg DAILY SC Last administered on 06/05/16 09:00 ; Admin Dose 40 MG; Start 05/31/16 at 16:00 Thiamine HCl (Vitamin B1) 100 mg DAILY PO Last administered on 06/05/16 08:54; Admin Dose 100 MG; Start 05/31/16 at 16:00 Phenol (Chloraseptic Throat [place]) 2 spray Q2H PRN MT SORE THROAT; Start 05/31 at 16:00 Guaifenesin/ Codeine Phosphate (Robitussin Ac Liquid Cup) 10 ml Q4H PRN PO COUGH; Start 05/31/16 at 15:30 Valsartan (Diovan) 80 mg DAILY PO Last administered on 06/05/16 08:55; Admin Dose 80 MG; Start 06/03/16 at 11:30 Hydralazine HCl (Apresoline) 10 mg Q4H PRN IV ELEVATED BLOOD PRESSURE Last administered on 06/04/16 19:26; Admin Dose 10 MG; Start 06/03/16 at 11:30 Famotidine 20 mg 20 mg DAILY PO Last administered on 06/05/16 08:55; Admin Dose 20 MG; Start 06/04/16 at 09:00 Piperacillin Sod/ Tazobactam Sod (Zosyn 3.375gm/ 100 ml (Pmx)) 100 ml @ 200 mls /hr Q8 IVPB Last administered on 06/05/16 14:30; Admin Dose 200 MLS/HR; Start 06/04/16 at 06:00 CHANCE GOLDBERG MD Jun 05, 2016 15:47
[2016-06-05 19:58] VITALS: BP 176/95; RESP 18
[2016-06-05] MEDS: OLANZAPINE 5 MG TAB PO SCH (21:01)
[2016-06-05] MEDS: hydrALAzine 20 MG INJ IV PRN (21:02)
[2016-06-05 22:37] VITALS: BP 143/80; RESP 18
[2016-06-06] MEDS: PIPER-TAZO 3.375 GM IV (PMX) 100 ML IVPB SCH ×3 (05:47→22:21)
[2016-06-06 07:37] VITALS: BP 137/85; RESP 20
[2016-06-06] MEDS: DOCUSATE SODIUM 100 MG CAP PO SCH ×2 (08:34→21:09)
[2016-06-06] MEDS: THIAMINE 100 MG TAB PO SCH (08:34)
[2016-06-06] MEDS: FAMOTIDINE 20 MG TAB PO SCH (08:34)
[2016-06-06] MEDS: VALSARTAN 80 MG TAB PO SCH (08:34)
[2016-06-06] MEDS: ENOXAPARIN 40 MG/0.4 ML SYG SC SCH (08:37)
--- NOTE | 2016-06-06 18:18 | PSY ---
Date/Time of Note Date/Time of Note DATE: 06/06/16 TIME: 17:29 Psychiatric Subjective Eval Subjective Evaluation Patient location: inpatient Chief Complaint: sore throat, hernandez, +visual/auditory hallucinations x"month" per family. Reason for consult: delusional, held a knife at home History of present illness Reason for consult: Discharge planning. HPI: This is a 55 year old male who was brought to the emergency room by his and daughter for flu-like symptoms over the pat 6 days, He also had been complaining of auditory and visual hallucinations for the past month. He had not been taking any psychotropic medications for a significant period of time. He states that he had not been sleeping for the past 6 weeks. He described his auditory hallucinations as voices telling him that he was going to be harmed by others and to hurt others. He was then seen by Dr. Damian who recommended that when medically cleared he could be admitted to a psychiatric unit for further treatment. She recommended that he be prescribed Olanzapine. For the past 6 days, since being prescribed Olanzapine, the patient has been symptom free. PAST MEDICAL HISTORY: The patient has history of psychiatric disorder, name unknown but has run out of medications a long time ago. SURGICAL HISTORY: The patient denies. ALLERGIES: HE HAS NO KNOWN DRUG ALLERGIES. SOCIAL HISTORY: The patient's family endorses heavy alcohol use, but they say he does not smoke tobacco or use illicit drugs. He has been for 9 years. FAMILY HISTORY: No history of premature coronary artery disease. REVIEW OF SYSTEMS: I did a 12-point review of systems. There is no chest pain. There are generalized body aches though. There is no dysuria, hematuria. There is no blood in stool or urine. There is no extremity swelling. There is no joint swelling or deformity. All other systems were reviewed and negative. 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 I spoke to the treating physician who reported that he has been free of psychiatric symptoms for the past 6 days. There is a 5 year old grand nephew who is living in the same home. Dr. Damian noted that there were family members that were afraid of his behavior prior to his admission. I have no clinical information at this time as to how the family feels. I can provide no conclusive opinion as I have not been able to interview the patient. However after discussion with the treating physician and review of the medical record, it appears that it would be difficult to have him admitted in an inpatient setting at this time as he is not demonstrating signs or symptoms of a mental illness. It appears that the dose of Olanzapine 10mg po hs is appropriate. The family could always return him to the ED if there is continued or renewed concern about his mental condition. 5150 Recommendation: I was not able to interview the patient due to technical problems with the robot. BRENTON WEBB MD Jun 06, 2016 17:49
[2016-06-06 19:29] VITALS: BP 144/82; RESP 14
[2016-06-06] MEDS: OLANZAPINE 5 MG TAB PO SCH (21:09)
[2016-06-07] MEDS: ACETAMINOPHEN 325 MG TAB PO PRN ×2 (06:24→16:51)
[2016-06-07 08:53] VITALS: BP 130/83; RESP 18
[2016-06-07] MEDS: VALSARTAN 80 MG TAB PO SCH (09:16)
[2016-06-07] MEDS: DOCUSATE SODIUM 100 MG CAP PO SCH (09:16)
[2016-06-07] MEDS: THIAMINE 100 MG TAB PO SCH (09:16)
[2016-06-07] MEDS: FAMOTIDINE 20 MG TAB PO SCH (09:16)
[2016-06-07] MEDS: ENOXAPARIN 40 MG/0.4 ML SYG SC SCH (09:20)
[2016-06-07 09:22] VITALS: BP 130/83; PULSE 92; RESP 18
--- NOTE | 2016-06-07 15:15 | PSY ---
Date/Time of Note Date/Time of Note DATE: 06/07/16 TIME: 15:10 Psychiatric Subjective Eval Consent Pt consented to telemedicine: Yes Subjective Evaluation Patient location: inpatient Chief Complaint: sore throat, hernandez, +visual/auditory hallucinations x"month" per family. Reason for consult: delusional, held a knife at home History of present illness 55 yo male on 5150 for DTo due to being paranoid at home; seen by this literary writer on 05/29/16. Pt reprots feeling much better, he is calm, cooperative, pleasant , oriented x4; he denies any AH or Vh, he denies feeling paranoid. He is on Zyprexa 10 mg poqhs. He denies feeling depressed, anxieous, denies feeling hopeless, denies insomnia. 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 Psychiatric Objective Eval Mental Status Examination: Appearance: Disheveled Eye Contact: Good Psychomotor Activity: Normal Behavior: Cooperative Speech: Clear AFFECT: Appropriate Mood: Appropriate/Full Though Process: Linear Thought Content: Normal Suicidal: No Homicidal: No On 72 hour hold: Yes Orientation: x4 Cognition: Alert Insight: Impared Judgement: Intact Assessment and Plan Assessment/Diagnosis [place] I: SCHIZOAFFECTIVE DISORDER VS ALCOHOL USE DISORDER WITH PSYCHOSIS [place] II: DEFERED [place] III: PER RECORD [place] IV: MODERATE [place] V: GAF 45 Recommendation/Plan Medication Management PLEASE CONTINUE ZYPREXA 10 MG POQHS Psychotherapy REFER TO OUTPT Pt. Caregiver/Family Education PLEASE CONTACT PT'S FAMILY TO ENSURE HE IS ABLE TO RETURN TO HIS FAMILY'S HOME Follow-up/Disposition NO DTS, DTO,GD; PT CAN BE DISCHARGED WITH OUTPT REFERRALS 5150 Recommendation: Release Hold BETTINA BROOKE MD Jun 07, 2016 15:15
== END 2016-06-07 18:55 | disposition short-term general hospital (02) | DRG 153 ==
LOC: E/R 09:06 → MS2 05-30 23:24
PROVIDERS: ADMIT Family Medicine; ATTEND Family Medicine
DX: J11.1 Influenza due to unidentified influenza virus with other respiratory manifestations (principal); R45.851 Suicidal ideations; D69.6 Thrombocytopenia, unspecified; K70.9 Alcoholic liver disease, unspecified; F25.9 Schizoaffective disorder, unspecified; Z72.89 Other problems related to lifestyle; F10.20 Alcohol dependence, uncomplicated; Z91.14 Patient's other noncompliance with medication regimen; J20.9 Acute bronchitis, unspecified; M62.830 Muscle spasm of back; R73.03 Prediabetes; R45.850 Homicidal ideations
CPT/HCPCS: 36415; 70450; 71010; 72100; 76705; 80048; 80053; 80076; 81003; 83036; 83605; 83735; 84100; 84443; 85025; 85610; 85730; 86706; 86803; 87040; 87340; 87400; 93005; 96374; 96375; G0478; G0479; J0360; J0696; J1650; J1956; J2543; J3411; J3475; J7030